=== PATIENT | male | born 1975 | race African-American/Black ===

== ENCOUNTER 2016-09-20 02:30 | Emergency (ER) | payer OTHER ==
[~2016-09-20] VITALS: Ht 167.6 cm; Wt 101.4 kg
[~2016-09-20 02:30] MED LIST: PROMETHAZINE HC25 M1 PO
[2016-09-20 03:21] LABS: HEMATOCRIT 37.1 % (38.0-50.0); MCH 29.2 PG (29.0-34.0); MCV 85.9 FL (86-99); PLATELET COUNT 249 K/uL (156-360); RBC DIS.WIDTH-CV 12.1 % (11.8-14.6); RBC DIS.WIDTH-SD 37.9 % (39-53); RED BLOOD COUNT 4.32 M/uL (4.00-5.50); WHITE BLOOD COUNT 9.1 K/uL (4.1-10.2)
[2016-09-20 03:29] LABS: CHLORIDE 107 mEq/L (99-109); POTASSIUM 3.8 mEq/L (3.7-5.4); SODIUM 142 mEq/L (136-147)
[2016-09-20 03:31] LABS: GLUCOSE 109 mg/dL (70-99)
[2016-09-20 03:32] LABS: ANION GAP 9 MEQ/L (2-14)
[2016-09-20 03:35] LABS: GFR ESTIMATE (CALCULATED) > 59 mL/min/
[2016-09-20 03:36] LABS: UREA NITROGEN (BUN) 15 mg/dL (9-23)
[2016-09-20 03:42] LABS: TROP-I INTERPRETATION NEGATIVE; TROPONIN-I < 0.01 ng/mL (0.0-0.30)
[2016-09-20] MEDS ORDERED: PREDNISONE50 MG PO (03:43)
[2016-09-20] MEDS ORDERED: AZITHROMYCIN250 MG PO (03:43)
[2016-09-20] MEDS ORDERED: VENTOLIN HFA18 GM IH (03:43)
[2016-09-20 04:37] VITALS: BP 110/69
== END 2016-09-20 04:38 | disposition home or self-care (01) ==
LOC: EME 02:30
PROVIDERS: Emergency Medicine
DX: J20.9 Acute bronchitis, unspecified (principal); I10 Essential (primary) hypertension
CPT/HCPCS: 71020; 80048; 83880; 84484; 85027; 94640; 94640 76; 99281; 99284; J7512

== ENCOUNTER 2016-09-28 23:34 | Observation (INO) | payer OTHER ==
[~2016-09-28] VITALS: Ht 167.6 cm; Wt 101.6 kg
[~2016-09-28 23:34] MED LIST changes: +AZITHROMYCIN250 MG PO; +PREDNISONE50 MG PO; +VENTOLIN HFA18 GM IH
[2016-09-29 00:09] LABS: HEMATOCRIT 38.9 % (38.0-50.0); MCH 28.9 PG (29.0-34.0); MCHC 33.2 G/DL (30.0-36.0); MCV 87.2 FL (86-99); MEAN PLAT.VOLUME 9.6 uM^3 (9.0-12.4); PLATELET COUNT 286 K/uL (156-360); RBC DIS.WIDTH-CV 12.5 % (11.8-14.6); RBC DIS.WIDTH-SD 39.7 % (39-53); RED BLOOD COUNT 4.46 M/uL (4.00-5.50); WHITE BLOOD COUNT 11.2 K/uL (4.1-10.2)
[2016-09-29 00:17] LABS: CHLORIDE 106 mEq/L (99-109); POTASSIUM 3.9 mEq/L (3.7-5.4); SODIUM 142 mEq/L (136-147)
[2016-09-29 00:19] LABS: GLUCOSE 98 mg/dL (70-99)
[2016-09-29 00:20] LABS: ANION GAP 10 MEQ/L (2-14)
[2016-09-29 00:23] LABS: GFR ESTIMATE (CALCULATED) > 59 mL/min/
[2016-09-29 00:24] LABS: UREA NITROGEN (BUN) 16 mg/dL (9-23)
[2016-09-29 00:30] LABS: TROP-I INTERPRETATION NEGATIVE; TROPONIN-I < 0.01 ng/mL (0.0-0.30)
[2016-09-29 03:42] LABS: BASE EXCESS 1.1 mEq/L (-3 to +3); BICARBONATE 26.6 mEq/L (22-26); CARBOXY HGB 1.8 % (0-5); PCO2 45 mm Hg (35-45); PO2 70 mm Hg (80-100); pH 7.38 (7.35-7.45)
[2016-09-29 03:43] LABS: COMMENTS - BLOOD GASES A+C+; DEVICE RA; SITE RR
[2016-09-29 04:11] VITALS: BP 118/67
[2016-09-29 07:31] VITALS: BP 153/81
[2016-09-29] MEDS ORDERED: NIFEDIPINE ER30 MG PO (07:43)
[2016-09-29] MEDS ORDERED: LEVAQUIN750 MG PO (10:27)
[2016-09-29] MEDS ORDERED: PREDNISONE10 MG PO (10:27)
[2016-09-29] MEDS ORDERED: ADVAIR HFA120 INHALA IH (10:27)
[2016-09-29] MEDS ORDERED: SYMBICORT60 INHALA1 IH (11:01)
== END 2016-09-29 11:30 | disposition home or self-care (01) ==
LOC: EME 23:34 → EDOF 09-29 03:10 → 5WEST 09-29 04:02
PROVIDERS: Hospitalist
DX: J20.9 Acute bronchitis, unspecified (principal); J45.901 Unspecified asthma with (acute) exacerbation; I10 Essential (primary) hypertension
CPT/HCPCS: 36600; 71020; 80048; 82803; 84484; 85027; 93005; 94640; 94640 76; 94644; 99202; 99281; 99284; G0378; J1956; J2930; J3475; J7030; J7040

== ENCOUNTER 2017-09-20 21:37 | Emergency (ER) | payer OTHER ==
[~2017-09-20] VITALS: Ht 167.6 cm; Wt 101.8 kg
[~2017-09-20 21:37] MED LIST changes: +ADVAIR HFA120 INHALA IH; +LEVAQUIN750 MG PO; +NIFEDIPINE ER30 MG PO; +PREDNISONE10 MG PO; +SYMBICORT60 INHALA1 IH
[2017-09-20 22:02] LABS: HEMATOCRIT 40.3 % (38.0-50.0); HEMOGLOBIN 13.8 G/DL (12.5-16.6); MCH 29.4 PG (29.0-34.0); MCHC 34.2 G/DL (30.0-36.0); MCV 85.9 FL (86-99); PLATELET COUNT 274 K/uL (156-360); RBC DIS.WIDTH-CV 12.2 % (11.8-14.6); RBC DIS.WIDTH-SD 38.1 % (39-53); RED BLOOD COUNT 4.69 M/uL (4.00-5.50); WHITE BLOOD COUNT 8.6 K/uL (4.1-10.2)
[2017-09-20 22:11] LABS: CHLORIDE 107 mEq/L (99-109); POTASSIUM 3.9 mEq/L (3.7-5.4); SODIUM 144 mEq/L (136-147)
[2017-09-20 22:12] LABS: GLUCOSE 114 mg/dL (70-99)
[2017-09-20 22:16] LABS: CREATININE 1.3 mg/dL (0.6-1.3); GFR ESTIMATE (CALCULATED) > 59 mL/min/ (58.99-99999)
[2017-09-20 22:17] LABS: UREA NITROGEN (BUN) 15 mg/dL (9-23)
[2017-09-21] MEDS ORDERED: DELTASONE20 M1 PO (00:21)
[2017-09-21] MEDS ORDERED: ZITHROMAX Z-PA250 MG PO (00:27)
[2017-09-21 00:51] VITALS: BP 141/90
== END 2017-09-21 01:08 | disposition home or self-care (01) ==
LOC: EME 21:37 → EXP 21:37
DX: J45.901 Unspecified asthma with (acute) exacerbation (principal); I10 Essential (primary) hypertension
CPT/HCPCS: 71046; 80048; 85027; 94640; 99281; 99284; J7512